=== PATIENT | female | born 1995 | race Hispanic/Latino ===

== ENCOUNTER 2017-05-22 20:07 | Emergency (ER) | payer MEDICAID ==
[2017-05-22 20:14] VITALS: TEMP 97.7
[2017-05-22] MEDS ORDERED: Sodium Chloride 0.9% 1,000 ML IV STA (20:30)
--- NOTE | 2017-05-22 20:42 | ED PDOC ---
HPI: Psych/Substance Abuse Time Seen by Provider: 05/22/17 20:17 Chief Complaint (Nursing): Substance Abuse Chief Complaint (Provider): Drug Intoxication History Per: Patient History/Exam Limitations: intoxication (History may be unreliale due to intoxication) Onset/Duration Of Symptoms: Hrs Suicide/Self Injury Attempted (Context): None Modifying Factor(s): Narcotics (heroin), Cocaine Additional Complaint(s): 22 year old female brought into the ED for drug intoxication. Patient history may be unreliable due to intoxication. As per EMS, they were called to the scene of a possible drug overdose. The patient admits that over the past couple hours she has had been using IV heroin and cocaine together multiple times. She reports that at one point after she injected herself she fell backward and felt as though her entire body was shaking as if having a seizure. Denies chest pain , HI/SI hallucinations, difficulty breathing, focal weakness, alcohol use. Patient reports she has used heroin and cocaine together in the past. pMD: Non [facility] Provider, Past Medical History Reviewed: Historical Data, Nursing Documentation, Vital Signs Vital Signs: Last Vital Signs Temp 97.7 F 05/22/17 20:11 Pulse 133 H 05/22/17 20:11 Resp 20 05/22/17 20:11 BP 115/83 05/22/17 20:11 Pulse Ox 96 05/22/17 20:11 - Medical History PMH: No Chronic Diseases - Surgical History Surgical History: No Surg Hx - Family History Family History: States: Other Other Family History: Asthma - Social History Current smoker - smoking cessation education provided: Yes Ex-Smoker (has not smoked in the last 12 months): Yes Alcohol: Social Drugs: Cocaine, Opiates (Heroin) - Home Medications Home Medications: Ambulatory Orders Medication Instructions Recorded No Known Home Med 05/22/17 - Allergies Allergies/Adverse Reactions: Allergies Allergy/AdvReac Type Severity Reaction Status Date / Time No Known Allergies Allergy Verified 05/22/17 20:14 Review of Systems ROS Statement: Except As Marked, All Systems Reviewed And Found Negative Constitutional: Positive for: Weakness Cardiovascular: Positive for: Light Headedness. Negative for: Chest Pain Neurological: Positive for: Altered Mental Status, Dizziness, Other (possible drug overdose). Negative for: Weakness, Numbness Psych: Negative for: Psychosis, Suicidal ideation Physical Exam - Reviewed Nursing Documentation Reviewed: Yes Vital Signs Reviewed: Yes - Physical Exam Appears: Positive for: In Acute Distress (intoxicated) Head Exam: Positive for: ATRAUMATIC, NORMOCEPHALIC Skin: Positive for: Warm, Dry Eye Exam: Positive for: EOMI (with roving eye movements), PERRL. Negative for: Nystagmus ENT: Positive for: Pharynx Is (clear with dry mucus membranes) Neck: Positive for: Painless ROM, Supple Cardiovascular/Chest: Positive for: Chest Non Tender, Tachycardia (regular rhythm). Negative for: Murmur Respiratory: Positive for: Normal Breath Sounds. Negative for: Respiratory Distress Gastrointestinal/Abdominal: Positive for: Soft. Negative for: Tenderness Back: Positive for: Normal Inspection. Negative for: Vertebral Tenderness Extremity: Positive for: Normal ROM. Negative for: Deformity Lymphatic: Negative for: Adenopathy Neurologic/Psych: Positive for: [employer] II-XII (intact), Oriented (x3), Mood/Affect (anxious mood with flat depressed affect), Other (slurred speech). Negative for : Alert (Pt seems sleepy), Motor/Sensory Deficits - Laboratory Results Result Diagrams: 05/22/17 20:44 05/22/17 20:44 - ECG O2 Sat by Pulse Oximetry: 96 (RA) Pulse Ox Interpretation: Normal Medical Decision Making Medical Decision Makin Initial Impression 22 y/o female presenting with polysubstance abuse and intoxication Initial Plan: * CT head w/o Contrast * EKG * Alcohol serum * CMP * CPK * Drug Screen * HCG Qualitative * Magnesium * Phosphorous * Upreg * Udip * CBC * NS 1000 ml IV 1000 mls/hr * Reevaluation 2215 EXAM: CT Head Without Intravenous Contrast CLINICAL HISTORY: 22 years old, female; Signs and symptoms; Dizziness; Additional info: Dizziness headache TECHNIQUE: Axial computed tomography images of the head/brain without intravenous contrast. All CT scans at this facility use one or more dose reduction techniques, viz.: automated exposure control; ma/kV adjustment per patient size (including targeted exams where dose is matched to indication; i.e. head); or iterative reconstruction technique. Coronal and sagittal reformatted images were created and reviewed. COMPARISON: No relevant prior studies available. FINDINGS: Brain: No hemorrhage. No significant white matter disease. No edema. Ventricles: No hydrocephalus. Bones: Skull is intact. Sinuses: No acute sinusitis. Mastoid air cells: No mastoid effusion. IMPRESSION: No CT evidence of acute intracranial abnormality. Thank you for allowing us to participate in the ca . Labs demonstrate UDS +barbituates, opiates, cocaine, and cannabinoids DW pt findings. Educated on dangers of drug abuse and resources given for addiction Documented by Julita Juarez acting as a scribe for Kimberly France MD. All medical record entries made by the Scribe were at my direction and personally dictated by me. I have reviewed the chart and agree that the record accurately reflects my personal performance of the history, physical exam, medical decision making, and the department course for this patient. I have also personally directed, reviewed, and agree with the discharge instructions and disposition. Disposition - Clinical Impression Clinical Impression: Polysubstance abuse Counseled Patient/Family Regarding: Studies Performed, Diagnosis, Need For Followup - Disposition Disposition: Routine/Home Disposition Time: 23:00 Condition: STABLE Additional Instructions: REST AND DRINK PLENTY OF HYDRATING FLUIDS. DO NOT DRIVE OR OPERATE ANY HEAVY MACHINERY FOR AT LEAST 24 HOURS PLEASE FOLLOW UP WITH ONE OF THE PROVIDED CENTERS FOR HELP WITH YOUR ADDICTION Instructions: Polysubstance Abuse (ED) Forms: [employer] (Nauruan)
[2017-05-22 20:54] LABS: BASO % 0.3 % (0.0-2.0); LYMPH # 2.2 K/uL (1.0-4.3); LYMPH % 15.6 % (20.0-40.0); MEAN CELL VOLUME 84.7 fl (81.0-99.0); MEAN CORPUSCULAR HEMOGLOBIN 28.7 pg (27.0-31.0); MEAN CORPUSCULAR HGB CONC 33.9 g/dL (33.0-37.0); MEAN PLATELET VOLUME 7.6 fl (7.2-11.7); MONO # 1.4 K/uL (0.0-0.8); NEUT # 10.4 K/uL (1.8-7.0); NEUT % 74.1 % (50.0-75.0); NRBC % 0.2 % (0.0-0.0); RBC 5.24 Mil/uL (3.80-5.20); RED CELL DISTRIBUTION WIDTH 13.3 % (11.5-14.5); WHITE BLOOD COUNT 14.1 K/uL (4.8-10.8)
[2017-05-22 21:17] VITALS: BP 117/86; RESP 22
[2017-05-22 21:48] LABS: ALB/GLOB RATIO 1.2 (1.0-2.1); ALBUMIN 4.3 g/dL (3.5-5.0); ALT/SGPT 121 U/L (9-52); AST/SGOT 100 U/L (14-36); BLOOD UREA NITROGEN 14 mg/dl (7-17); CALCIUM 9.7 mg/dL (8.4-10.2); GFR AFRICAN-AMERICAN > 60; GFR NON-AFRICAN AMERICAN > 60; MAGNESIUM 1.7 MG/DL (1.6-2.3)
[2017-05-22 21:52] LABS: BENZODIAZEPINES, UR NEGATIVE (NEGATIVE); PHENCYCLIDINE, UR NEGATIVE (NEGATIVE)
[2017-05-22 21:55] LABS: BARBITURATES, UR POSITIVE (NEGATIVE); OPIATES, UR POSITIVE (NEGATIVE)
[2017-05-22 21:57] LABS: SQUAMOUS EPITHIAL 9 /hpf (0-5); URINE AMORPHOUS SEDIMENT RARE /ul (<OCC); URINE BACTERIA OCC (<OCC); URINE BILIRUBIN NEGATIVE (NEGATIVE); URINE BLOOD MODERATE (NEGATIVE); URINE CLARITY CLOUDY (Clear); URINE COLOR YELLOW (YELLOW); URINE GLUCOSE (UA) NEG (Normal); URINE LEUKOCYTE ESTERASE LARGE Leu/uL (Negative); URINE NITRATE NEGATIVE (NEGATIVE); URINE PROTEIN 30 mg/dL (NEGATIVE); URINE UROBILINOGEN 0.2-1.0 mg/dL (0.2-1.0)
--- NOTE | 2017-05-22 22:16 | CT ---
EXAM: CT Head Without Intravenous Contrast CLINICAL HISTORY: 22 years old, female; Signs and symptoms; Dizziness; Additional info: Dizziness headache TECHNIQUE: Axial computed tomography images of the head/brain without intravenous contrast. All CT scans at this facility use one or more dose reduction techniques, viz.: automated exposure control; ma/kV adjustment per patient size (including targeted exams where dose is matched to indication; i.e. head); or iterative reconstruction technique. Coronal and sagittal reformatted images were created and reviewed. COMPARISON: No relevant prior studies available. FINDINGS: Brain: No hemorrhage. No significant white matter disease. No edema. Ventricles: No hydrocephalus. Bones: Skull is intact. Sinuses: No acute sinusitis. Mastoid air cells: No mastoid effusion. IMPRESSION: No CT evidence of acute intracranial abnormality.
[2017-05-22] MEDS ORDERED: Lactated Ringer's 1,000 ML IV STA (22:18)
[2017-05-22 22:59] VITALS: PULSE 104
[2017-05-22 23:16] VITALS: O2SAT 96
--- NOTE | 2017-05-23 10:38 | CARD ---
APPROVED REPORT EKG Measurement Heart [id number] <Conclusion> Sinus tachycardia RSR' or QR pattern in V1 suggests right ventricular conduction delay Borderline ECG
== END 2017-05-22 23:18 | disposition home or self-care (01) ==
LOC: H.ER 20:07
DX: F19.10 Other psychoactive substance abuse, uncomplicated (principal); R42 Dizziness and giddiness; W19.XXXA Unspecified fall, initial encounter; Y92.89 Other specified places as the place of occurrence of the external cause; F17.200 Nicotine dependence, unspecified, uncomplicated
CPT/HCPCS: 70450; 80053; 80320; 80324; 80345; 80346; 80349; 80353; 80358; 80361; 81003; 81025; 82550; 82948; 83735; 83992; 84100; 84703; 85025; 87086; 93005; 96360; 96361; 99284; J7040; J7120

== ENCOUNTER 2018-03-05 02:55 | Emergency (ER) | payer MEDICAID ==
--- NOTE | 2018-03-05 05:06 | ED PDOC ---
HPI: Psych/Substance Abuse Time Seen by Provider: 03/05/18 03:25 Chief Complaint (Nursing): Alcohol Ingestion Chief Complaint (Provider): Alcohol Ingestion ED Caveat: Intoxicated History Per: Patient, EMS History/Exam Limitations: intoxication Onset/Duration Of Symptoms: Hrs (BEAMER HAND) Current Symptoms Are (Timing): Still Present Associated Symptoms: Agitation Additional Complaint(s): 22 year old female brought in by EMS for possible alcohol intoxication. HPI is limited de to intoxication and uncooperative behavior. Patient is agitated and not giving any information about what alcohol or drugs she consumed. Upon arriv al patient fell on the floor while being escorted by ambulance crew to her room. She says she feels fine and wants to leave. Past Medical History Reviewed: Historical Data, Nursing Documentation, Vital Signs, Unable To Obtain Vital Signs: Last Vital Signs Temp 98.0 F 03/05/18 03:10 Pulse 98 H 03/05/18 03:10 Resp 18 03/05/18 03:10 BP 109/67 03/05/18 03:10 Pulse Ox 100 03/05/18 03:10 - Medical History PMH: No Chronic Diseases - Surgical History Surgical History: No Surg Hx - Family History Family History: States: No Known Family Hx - Home Medications Home Medications: Ambulatory Orders Medication Instructions Recorded RX: No Known Home Med 05/22/17 - Allergies Allergies/Adverse Reactions: Allergies Allergy/AdvReac Type Severity Reaction Status Date / Time No Known Allergies Allergy Verified 03/05/18 03:09 Review of Systems Review Of Systems: ROS cannot be obtained secondary to pt's inabilty to answer questions. Physical Exam - Reviewed Nursing Documentation Reviewed: Yes Vital Signs Reviewed: Yes - Physical Exam Appears: Positive for: In Acute Distress (very agitated, screaming) Head Exam: Negative for: ATRAUMATIC (small swelling on left forehead) Skin: Positive for: Normal Color, Warm, Dry Eye Exam: Positive for: EOMI, PERRL Neck: Positive for: Normal Cardiovascular/Chest: Positive for: Regular Rate, Rhythm. Negative for: Murmur Respiratory: Positive for: Normal Breath Sounds. Negative for: Respiratory Distress Gastrointestinal/Abdominal: Positive for: Normal Exam, Soft. Negative for: T enderness Extremity: Positive for: Normal ROM. Negative for: Pedal Edema, Deformity Neurologic/Psych: Positive for: Alert, Oriented, Gait (unsteady), Other (slurred speech) - Laboratory Results Result Diagrams: 03/05/18 04:55 03/05/18 04:55 - ECG O2 Sat by Pulse Oximetry: 100 (RA) Pulse Ox Interpretation: Normal Medical Decision Making Medical Decision Making: Time: 328 Initial Impression: Alcohol intoxication, possible substance abuse, head injury rule out intracranial bleed Initial Plan: --CT head w/o contrast --Haldol and Ativan for agitation and substance induced psychosis --Restraints --Labs --monitor for clinical sobriety Scribe Attestation: Documented by Yaritza Kevin, acting as a scribe for Matty Lau MD Provider Scribe Attestation: All medical record entries made by the Scribe were at my direction and personally dictated by me. I have reviewed the chart and agree that the record accurately reflects my personal performance of the history, physical exam, medical decision making, and the department course for this patient. I have also personally directed, reviewed, and agree with the discharge instructions and disposition. Disposition - Clinical Impression Clinical Impression: Alcohol abuse with intoxication - Patient ED Disposition Is Patient to be Admitted: Transfer of Care Counseled Patient/Family Regarding: Studies Performed, Diagnosis - Disposition Referrals: [facility] [Outside] Disposition: Transfer of Care Disposition Time: 07:00 Condition: STABLE Instructions: Alcohol Abuse and Alcoholism (DC) Patient Signed Over To: Dhaval Laura
[2018-03-05 05:10] LABS: BASO # 0.1 K/uL (0.0-0.2); BASO % 0.7 % (0.0-2.0); EOS # 0.2 K/uL (0.0-0.7); EOS % 1.9 % (0.0-4.0); HEMOGLOBIN 12.7 g/dL (12.0-16.0); LYMPH # 4.1 K/uL (1.0-4.3); MEAN CELL VOLUME 90.7 fl (81.0-99.0); MEAN CORPUSCULAR HEMOGLOBIN 31.3 pg (27.0-31.0); MEAN CORPUSCULAR HGB CONC 34.5 g/dL (33.0-37.0); MEAN PLATELET VOLUME 8.4 fl (7.2-11.7); MONO # 0.6 K/uL (0.0-0.8); MONO % 6.4 % (0.0-10.0); NEUT # 4.6 K/uL (1.8-7.0); RBC 4.05 Mil/uL (3.80-5.20); RED CELL DISTRIBUTION WIDTH 12.8 % (11.5-14.5); WHITE BLOOD COUNT 9.6 K/uL (4.8-10.8)
[2018-03-05 05:20] LABS: BLOOD UREA NITROGEN 10 mg/dl (7-17); CALCIUM 9.2 mg/dL (8.4-10.2); GFR NON-AFRICAN AMERICAN > 60
[2018-03-05] MEDS ORDERED: Potassium Chloride 20 mEq ER Tab PO ONE (10:10)
--- NOTE | 2018-03-05 11:58 | CT ---
Date of service: 03/05/2018 PROCEDURE: CT HEAD WITHOUT CONTRAST. HISTORY: head injury COMPARISON: Comparison is made with 03/22/2017 TECHNIQUE: Axial computed tomography images were obtained through the head/brain without intravenous contrast. Radiation dose: Total exam DLP = 722.43 mGy-cm. This CT exam was performed using one or more of the following dose reduction techniques: Automated exposure control, adjustment of the mA and/or kV according to patient size, and/or use of iterative reconstruction technique. FINDINGS: HEMORRHAGE: No intracranial hemorrhage. BRAIN: No mass effect or edema. No atrophy or chronic microvascular ischemic changes. VENTRICLES: Unremarkable. No hydrocephalus. CALVARIUM: Unremarkable. PARANASAL SINUSES: Unremarkable as visualized. No significant inflammatory changes. MASTOID AIR CELLS: Unremarkable as visualized. No inflammatory changes. OTHER FINDINGS: None. IMPRESSION: No evidence of acute intracranial hemorrhage mass effect or midline shift. The preliminary findings for this examination were reported by [facility] at {7:13 a.m.} on {03/05/2018} there is discordance of this report with the preliminary findings.
--- NOTE | 2018-03-05 12:35 | ED PDOC ---
- Laboratory Results Result Diagrams: 03/05/18 04:55 03/05/18 04:55 - ECG O2 Sat by Pulse Oximetry: 98 - Progress Re-evaluation Time: 12:34 Condition: Improved (Awake alert oriented x 3. No focal neuro deficits) Disposition - Clinical Impression Clinical Impression: Alcohol abuse with intoxication - POA Present On Arrival: None - Disposition Referrals: [facility] [Outside] Disposition: Routine/Home Disposition Time: 12:35 Condition: FAIR Instructions: Alcohol Abuse and Alcoholism (DC) Forms: [employer] (Maori)
[2018-03-05 12:57] VITALS: BP 109/58; PULSE 99; RESP 18; TEMP 98.4
[2018-03-07 19:18] VITALS: O2SAT 100
== END 2018-03-05 13:20 | disposition home or self-care (01) ==
LOC: H.ER 02:55
DX: F10.129 Alcohol abuse with intoxication, unspecified (principal); Y90.6 Blood alcohol level of 120-199 mg/100 ml
CPT/HCPCS: 70450; 80048; 80320; 85025; 96372; 99284; J1630; J2060